=== PATIENT | female | born 1985 | race Caucasian/White ===

== ENCOUNTER 2017-11-14 09:33 | Observation (INO) ==
[2017-11-14 10:43] LABS: BUN/Creatinine Ratio 11 (6-26); Blood Urea Nitrogen 8 mg/dL (6-20); Calcium 10.2 mg/dL (8.6-10.3); Carbon Dioxide 28 mEq/L (23-29); Chloride 105 mEq/L (98-107); Glucose 98 mg/dL (70-105); Osmolality,Calculated 290 (280-300); Potassium 3.9 mEq/L (3.5-5.1); Sodium 141 mEq/L (136-145); eGFR For Non-African Americans > 60 (> 60)
--- NOTE | 2017-11-14 11:19 | Emergency Department Note ---
Overdose - Lab Data Result diagrams: 11/14/17 09:58 Lab Results 11/14/17 Range/Units 09:58 Sodium 141 (136-145) mEq/L Potassium 3.9 (3.5-5.1) mEq/L Chloride 105 (98-107) mEq/L Carbon Dioxide 28 (23-29) mEq/L BUN 8 (6-20) mg/dL Creatinine 0.70 (0.60-1.20) mg/dL Est GFR ( Amer) > 60 (> 60) Est GFR (Non-Af Amer) > 60 (> 60) BUN/Creatinine Ratio 11 (6-26) Glucose 98 (70-105) mg/dL Calculated Osmolality 290 (280-300) Calcium 10.2 (8.6-10.3) mg/dL Overdose HPI - General Chief Complaint: ED Overdose Stated Complaint: EXPOSURE Time Seen by Provider: 11/14/17 10:23 Source: EMS Limitations: altered mental status Nursing Notes Reviewed: Yes Vital Signs Reviewed: Yes - History of Present Illness HPI Narrative: 32 year old female who was first on the scene when investigating the patient zero during a room search with other gaurds who were learning how to search a room. At that time they began to feel dizzy and he was unresponsive. She had a syncopal episode and then recieved 8mg a narcan before arrival. She currently is aleart and drowsy but otherise protecting her airway - Related Data Allergies Allergy/AdvReac Type Severity Reaction Status Date / Time No Known Allergies Allergy Verified 11/14/17 09:49 Constitutional: Denies: fever, chills, weakness, weight change Eyes: Denies: eye pain, eye discharge, vision change ENT ED: Denies: ear pain, throat pain, dental pain, hearing loss, epistaxis, congestion, dysphagia Cardiovascular: Denies: chest pain, palpitations, dyspnea on exertion, edema, syncope Respiratory: Denies: cough, dyspnea, wheezes, hemoptysis, stridor Gastrointestinal: Denies: abdominal pain, nausea, vomiting, diarrhea, constipation, hematemesis, melena, hematochezia Genitourinary: Denies: dysuria, frequency, hematuria, discharge Musculoskeletal: Denies: back pain, neck pain, arthralgia, myalgia Integumentary: Denies: rash, abrasion, lesions Neurological: Reports: weakness, other (dizziness). Denies: headache, numbness , paresthesias, confusion, abnormal gait, vertigo Psychiatric: Denies: anxiety, depression, suicidal thoughts, homicidal thoughts , auditory hallucinations, visual hallucinations Endocrine: Denies: fatigue Hematological/Lymphatic: Denies: easy bleeding, easy bruising Allergic/Immunologic: Denies: facial swelling, urticaria Past Medical History - Past Medical History Medical history: Reports: no medical history Psychiatric history: Reports: no psych history - Social History Smoking Status: Never smoker Alcohol use: Reports: none Drug use: Reports: none Physical Exam - General Limitations: altered mental status General appearance: alert - Head Head exam: atraumatic, normocephalic, normal inspection - Eye Eye exam: Present: normal appearance, PERRL, EOMI - Expanded Eye Exam Pupils: Bilateral: reactive - ENT ENT exam: normal exam, normal oropharynx, mucous membranes moist - Expanded ENT Exam External ear exam: Present: normal external inspection Mouth exam: Present: normal external inspection Teeth exam: Present: normal inspection Throat exam: Present: normal inspection - Neck Neck exam: Present: normal inspection, full ROM, trachea midline - Chest Chest inspection: Present: normal inspection, symmetric chest wall rise - Respiratory Respiratory exam: Present: normal lung sounds bilaterally - Cardiovascular Cardiovascular exam: Present: regular rate, normal rhythm, normal heart sounds - Abdominal Exam Abdominal exam: Present: soft, Non-Tender. Absent: tenderness, distention, guarding, rebound, rigidity - Extremities Exam Extremities exam: Present: normal inspection, full ROM. Absent: tenderness, pedal edema - Expanded Upper Extremity Exam Shoulder exam: Present: normal inspection, full ROM Arm exam: Present: normal inspection, full ROM Elbow exam: Present: normal inspection, full ROM Forearm/Wrist exam: Present: normal inspection, full ROM Hand exam: Present: normal inspection, full ROM Vascular exam: Normal: capillary refill, radial pulse - Expanded Lower Extremity Exam Hip/Pelvis exam: Present: normal inspection, full ROM Upper leg exam: Present: normal inspection, full ROM Knee exam: Present: normal inspection, full ROM Lower leg exam: Present: normal inspection, full ROM Ankle exam: Present: normal inspection, full ROM Foot/toe exam: Present: normal inspection, full ROM Neurovascular/Tendon exam: Absent: motor deficit, sensory deficit, tendon deficit - Back Exam Back exam: Present: normal inspection, full ROM. Absent: tenderness - Neurological Exam Neurological exam: Present: alert, oriented X3 - Expanded Neurological Exam Patient oriented to: Present: person, place, time Coma Scale Eye Opening: Spontaneous Coma Scale Motor Response: Obeys Commands Coma Scale Verbal Response: Oriented Coma Scale Total: 15 - Psychiatric Psychiatric exam: Present: normal affect, normal mood - Skin Skin exam: Present: warm, dry, intact, normal color Course Course Narrative: Vernell has been exposed to fentayl airbouren and has required mulitple doses of narcan and now has been placed on a narcan drip. Arron will be admitted to [facility] more alert now and complaininting of burning senation on her skin. She has been Deconned twice secondary to fentayl being on her hair and exposure to our [employer] which caused her to have a syncopal episode - Consultations Consultation #1: discussed case with Dr. Izquierdo and she accepts patiet to her serivec. stable Time: 12:34 Vital Signs Temperature 97.9 F 11/14/17 09:49 Pulse Rate 87 11/14/17 09:49 Respiratory Rate 16 11/14/17 09:49 Blood Pressure 121/77 11/14/17 09:49 O2 Sat by Pulse Oximetry 99 11/14/17 09:49 Temperature 97.9 F 11/14/17 09:49 Pulse Rate 87 11/14/17 09:49 Respiratory Rate 16 11/14/17 09:49 Blood Pressure 129/83 11/14/17 10:46 O2 Sat by Pulse Oximetry 99 11/14/17 09:49 Oxygen Delivery Oxygen Delivery Room Air Disposition Clinical Impression: Fentanyl poisoning Qualifiers: Encounter type: initial encounter Injury intent: accidental or unintentional Qualified Code(s): T40.4X1A - Poisoning by other synthetic narcotics, accidental (unintentional), initial encounter Disposition: Admitted As Inpatient Condition: Good Referrals: Ugo Beth MD [Primary Care Provider] - Forms: ED Satisfaction Letter Time of Disposition: 11:21
[2017-11-14] MEDS ORDERED: Ondansetron 4 MG/2 ML VIAL IVP ONE (11:42)
[2017-11-14 13:05] LABS: Bilirubin,Urine Negative (Negative); Blood,Urine Negative (Negative); Clarity,Urine Clear (Clear); Color,Urine Yellow (Yellow); Glucose,Urine (UA) Normal (Normal); Ketones,Urine Negative (Negative); Leukocyte Esterase,Urine Negative (Negative); Nitrite,Urine Negative (Negative); Protein,Urine Negative (Neg-Trace); Specific Gravity,Urine 1.007 (1.010-1.025); Urobilinogen,Urine Normal (Normal)
[2017-11-14 13:10] LABS: Amphetamine Screen,Urine Negative ng/mL (Cutoff=1000); Barbiturate Screen,Urine Negative ng/mL (Cutoff=200); Benzodiazepines Screen,Urine Negative ng/mL (Cutoff=200); Cannabinoid Screen,Urine Negative ng/mL (Cutoff = 50); Cocaine Screen,Urine Negative ng/mL (Cutoff= 300); Opiate Screen,Urine Negative ng/mL (Cutoff=300); Phencyclidine Screen,Urine Negative ng/mL (Cutoff=25)
[2017-11-14] MEDS ORDERED: D5% in 0.9% NACL 1,000 ML IVC ONE (16:50)
[2017-11-14] MEDS ORDERED: Ondansetron 4 MG/2 ML VIAL ONE (16:51)
[2017-11-14] MEDS ORDERED: Acetaminophen IV 500 MG/50 ML INFUS..BTL IVPB ONE (17:05)
[2017-11-14] MEDS ORDERED: Naloxone 0.4 MG/ML INJ IVP PRN (17:26)
[2017-11-14] MEDS ORDERED: Ondansetron 4 MG/2 ML VIAL IVP PRN (17:28)
[2017-11-14] MEDS: Acetaminophen 325 MG TABLET PO PRN ×2 (17:44→23:32)
[2017-11-14] MEDS: 0.9 % Sodium Chloride 1,000 ML IVC SCH (17:45)
--- NOTE | 2017-11-14 18:31 | Internal Med History&Physical ---
Date of Encounter: 11/14/17 Time of Encounter: 17:00 Internal Medicine - H&P: HPI Chief complaint: Syncope Admitted From: Emergency Dept Plans for Post Hospital Care: Home History of present illness: Ms. Lara is a 32 year old female with no significant past medical history, was brought in by EMS after having passed out due to likely opiate inhalation. 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 Per ER records, there has been white powder that was opened and that got into the environment and possibly the vent system of the [facility], thus exposing multiple inmates and guards, causing dizziness, syncope, skin paresthesias, wheezing and dyspnea. This is later found to be Fentanyl. Patient currently does not remember anything since entering the said room, and the next thing she knew EMS was taking her to ER. She denies chest pain, shortness of breath, palpitations at the time except syncope. She currently denies these complaints, but does have generalized weakness, extreme fatigue, nausea and dry heaving, no emesis or diarrhea. Past Med Surg Social Fam HX - Past Medical History Source: patient Medical history: no medical history Psychiatric history: no psych history - Past Surgical History Surgical History: no surgical history - Social History Smoking Status: Current every day smoker Packs per day: 1 pack per day Smokeless Tobacco Status: No Alcohol use: none Drug use: none Occupational status: employed Current living situation: Home, With Family Activity Level: Independent ambulation Recent Out of Country Travel Within the Last 8 Weeks: No Exposure or Possible Exposure to Illness During Travel: No - Family History Mother Hx Family Endocrine Disorder: Yes (DM) Internal Medicine - H&P: Meds Esomeprazole Magnesium [Nexium] 40 mg PO DAILY 11/14/17 [History] Tramadol HCl [Ultram] 50 mg PO TID PRN 11/14/17 [History] Venlafaxine HCl [Effexor Xr] 75 mg PO DAILY 11/14/17 [History] 3 Allergy/AdvReac Type Severity Reaction Status Date / Time No Known Allergies Allergy Verified 11/14/17 15:23 All Systems PM: A 10-system review of systems was performed and is negative for pertinent findings except as documented above in the HPI. - Constitutional Constitutional: lethargy, malaise, weakness - EENT Eyes: no change in vision, no discharge, no pain, no photophobia Ears: no ear discharge, no ear pain, no tinnitus Nose, mouth and throat: no dysphagia, no nasal discharge, no neck pain, no sore throat - Cardiovascular Cardiovascular ROS IM: no chest pain, no diaphoresis, no dyspnea, no lightheadedness, no palpitations, no syncope - Respiratory Respiratory: no cough, no dyspnea, no wheezing, no excessive phlegm production - Gastrointestinal Gastrointestinal: nausea, no abdominal pain, no diarrhea, no hematemesis, no hematochezia, no melena, no vomiting - Genitourinary Genitourinary: no change in urinary stream, no dysuria, no flank pain, no hematuria - Musculoskeletal Musculoskeletal ROS IM: no numbness, no tingling - Integumentary Integumentary IM: no rash, no unusual bruising - Neurological Neurological ROS: behavioral changes, confusion, dizziness, weakness - Hematologic/Lymphatic Hematologic/Lymphatic: no easy bruising - Constitutional Vitals: Temp Pulse Resp BP Pulse Ox 98.6 F 76 16 123/70 97 11/14/17 17:00 11/14/17 17:00 11/14/17 17:00 11/14/17 17:00 11/14/17 17:00 General appearance: Present: mild distress (due to nausea), A&O X 3, answers questions appropriately Exam: . - Respiratory Respiratory exam: Present: CTAB. Absent: accessory muscle use, rales, rhonchi, wheezes - Cardiovascular Cardiovascular exam: Present: RRR, +S1, +S2. Absent: diastolic murmur, gallop, rubs, systolic murmur - GI/Abdominal GI/Abdominal exam: Present: normal bowel sounds, soft, no peritoneal signs. Absent: distended, tenderness - Extremities Exam Extremities exam: Present: full ROM, warm, radial pulses palpable and symmetrical. Absent: calf tenderness, cyanotic, pedal edema - Neurological Exam Neurological exam: Present: CN II-XII intact, oriented X3, no focal deficits (B/ L generalized weakness, 4/5 motor power). Absent: pronater drift, facial droop , speech deficit - Skin Skin exam: Present: dry, intact Internal Med - H&P Results - Labs CBC & Chem 7: 11/14/17 09:58 - Assessment and plan (1) Syncope Current Visit: Yes Status: Acute Assessment and plan: Drug-induced, likely secondary to unintentional Fentanyl inhalation; continue Telemetry monitoring; Qualifiers: Syncope type: unspecified Qualified Code(s): R55 - Syncope and collapse (2) Depression Current Visit: Yes Status: Chronic Qualifiers: Depression Type: unspecified Qualified Code(s): F32.9 - Major depressive disorder, single episode, unspecified (3) Fentanyl poisoning Current Visit: Yes Status: Acute Assessment and plan: Accidental Fentanyl inhalation due to an outbreak in the [facility], causing mass casualties and emergency in the ER; monitor vital signs closely; supportive care; PRN antiemetic; avoid sedatives/ hypnotics; fall precautions; diet as tolerated; Qualifiers: Encounter type: initial encounter Injury intent: accidental or unintentional Qualified Code(s): T40.4X1A - Poisoning by other synthetic narcotics, accidental (unintentional), initial encounter - Time Spent With Patient Total time spent is greater than 50% in coordination of care (as documented) at patient's floor/unit and/or counseling patient:
[2017-11-14] MEDS ORDERED: Ibuprofen 400 MG TABLET PO PRN (21:32)
[2017-11-15] MEDS ORDERED: *HR* Promethazine 25 MG/ML VIAL IVP PRN (01:23)
[2017-11-15] MEDS ORDERED: Ketorolac 15 MG/ML VIAL IVP ONE (01:25)
[2017-11-15] MEDS: 0.9 % Sodium Chloride 1,000 ML IVC SCH (04:17)
[2017-11-15 04:18] LABS: Basophils % 0.3 %; Eosinophils # 0.1 K/mcL (0.0-0.6); Eosinophils % 1.3 %; Hematocrit 36.7 % (35.3-44.9); Hemoglobin 12.2 g/dL (11.5-15.4); Immature Granulocytes % 0.3 % (0-4); Lymphocytes # 3.2 K/mcL (0.6-4.6); Mean Corpuscular HGB Conc 33.2 g/dL (31.6-35.5); Mean Corpuscular Hemoglobin 32.3 pg (28.0-33.3); Mean Corpuscular Volume 97.1 fL (83.0-100.0); Mean Platelet Volume 9.4 fL (9.4-12.4); Monocytes # 0.7 K/mcL (0.0-1.3); Monocytes % 9.2 %; Neutrophils # 3.6 K/mcL (1.6-8.9); Platelet Count 277 K/mcL (140-400); Red Blood Count 3.78 M/mcL (3.82-4.97); Segmented Neutrophils % 46.9 %
[2017-11-15 04:39] LABS: BUN/Creatinine Ratio 15 (6-26); Blood Urea Nitrogen 9 mg/dL (6-20); Calcium 8.9 mg/dL (8.6-10.3); Carbon Dioxide 28 mEq/L (23-29); Chloride 110 mEq/L (98-107); Glucose 93 mg/dL (70-105); Osmolality,Calculated 288 (280-300); Potassium 4.1 mEq/L (3.5-5.1); Sodium 140 mEq/L (136-145); eGFR For Non-African Americans > 60 (> 60)
[2017-11-15] MEDS: Acetaminophen 325 MG TABLET PO PRN (08:13)
[2017-11-15 08:39] VITALS: BP 108/69
[2017-11-15] MEDS ORDERED: Venlafaxine XR (24 HR) 75 MG CAP.ER.24H PO SCH (09:00)
[2017-11-15] MEDS ORDERED: Stomatitis Mixture 5 ML UDC PO SCH (09:00)
--- NOTE | 2017-11-15 09:53 | Internal Med Progress Note ---
Hospitalist Progress Note - Encounter Date of Encounter: 11/15/17 Time of Encounter: 08:00 - Exam Vitals: Temp Pulse Resp BP Pulse Ox 98.0 F 71 14 108/69 98 11/15/17 04:00 11/15/17 08:00 11/15/17 08:00 11/15/17 08:00 11/15/17 08:00 - Time Spent with Patient Total time spent is greater than 50% in coordination of care (as documented) at patient's floor/unit and/or counseling patient: Internal Medicine: Result - Labs CBC & Chem 7: 11/15/17 04:08 11/15/17 04:08 Labs: Short CBC 11/15/17 Range/Units 04:08 WBC 7.6 (4.3-11.1) K/mcL Hgb 12.2 (11.5-15.4) g/dL Hct 36.7 (35.3-44.9) % Plt Count 277 (140-400) K/mcL Neutrophils # 3.6 (1.6-8.9) K/mcL BMP 11/15/17 04:08 Sodium 140 Potassium 4.1 Chloride 110 H Carbon Dioxide 28 BUN 9 Creatinine 0.59 L Glucose 93 Calcium 8.9 Consult Discharge Plan - Plan Referrals: Ugo Beth MD [Primary Care Provider] -
--- NOTE | 2017-11-15 10:56 | Discharge Summary ---
<Reed King - Last Filed: 11/15/17 19:48> - NOTES TO OUTPATIENT PROVIDER Notes to Outpatient Provider: pt sent home with narcan nasal spray, stomatitis mix, continuing home meds Date of Encounter: 11/15/17 Time of Encounter: 08:00 - Discharge Diagnosis (1) Fentanyl poisoning Priority: Primary Status: Acute Qualifiers: Encounter type: initial encounter Injury intent: accidental or unintentional Qualified Code(s): T40.4X1A - Poisoning by other synthetic narcotics, accidental (unintentional), initial encounter (2) Syncope Priority: Secondary Status: Acute Qualifiers: Syncope type: unspecified Qualified Code(s): R55 - Syncope and collapse (3) Depression Priority: Secondary Status: Chronic Qualifiers: Depression Type: unspecified Qualified Code(s): F32.9 - Major depressive disorder, single episode, unspecified Hospital course: Ms. 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 Patient given narcan drip on admission, airway remained protected, telemetry showing no concerning changes. Patient today experiencing less headache (responded to tylenol), less pruritis/paresthesia of the face/neck, and is alert and oriented and answering questions appropriately. She is being discharged with nasal narcan spray (with RN instruction on its use/ indications) and stomatitis mix for incidental hard palate irritation. Ready to go home with family today. - Time Spent with Patient Total time spent providing and/or coordinating discharge services: - Discharge Medications Prescriptions: NALOXONE 4 MG Nasal [place] [Narcan] 4 mg NS AD #2 sprays Stomatitis Mixture 5 ml PO PRN PRN #100 mls PRN Reason: Pain Home Medications: Esomeprazole Magnesium [Nexium] 40 mg PO DAILY 11/14/17 [History] Tramadol HCl [Ultram] 50 mg PO TID PRN 11/14/17 [History] Venlafaxine HCl [Effexor Xr] 75 mg PO DAILY 11/14/17 [History] NALOXONE 4 MG Nasal [place] [Narcan] 4 mg NS AD #2 sprays 11/15/17 [Rx] Stomatitis Mixture 5 ml PO PRN PRN #100 mls 11/15/17 [Rx] Allergies/Adverse Reactions: 3 Allergy/AdvReac Type Severity Reaction Status Date / Time No Known Allergies Allergy Verified 11/14/17 15:23 Date of admission: 11/14/17 12:43 Primary care physician: Ugo Beth MD - Constitutional Vitals: Temp Pulse Resp BP Pulse Ox 98.0 F 74 16 108/69 99 11/15/17 04:00 11/15/17 10:00 11/15/17 10:00 11/15/17 08:00 11/15/17 10:00 General appearance: Present: mild distress (due to nausea), A&O X 3, answers questions appropriately Exam: . - Head Head exam: Present: atraumatic, normocephalic - Eye Eye exam: Present: PERRL, conjuntiva pink, sclera anicteric Pupils: Present: PERRL - Neck Neck exam general surgery: Present: supple, trachea midline. Absent: lymphadenopathy - Respiratory Respiratory exam: Present: CTAB. Absent: accessory muscle use, rales, rhonchi, wheezes - Cardiovascular Cardiovascular exam: Present: RRR, +S1, +S2. Absent: diastolic murmur, gallop, rubs, systolic murmur - GI/Abdominal GI/Abdominal exam: Present: normal bowel sounds, soft, no peritoneal signs. Absent: distended, tenderness - Extremities Exam Extremities exam: Present: warm, radial pulses palpable and symmetrical. Absent : calf tenderness, cyanotic, pedal edema - Neurological Exam Neurological exam: Present: CN II-XII intact, oriented X3, no focal deficits. Absent: pronater drift, facial droop, speech deficit - Skin Skin exam: Present: dry, intact - Patient Status Disposition: Home, Self-Care Condition: Good - Discharge Instructions Follow Up With: Uog Beth MD [Primary Care Provider] - 11/20/17 11:30 am (hospital follow up) - Diet and Activity Activity: resume usual activities as tolerated Diet: regular diet <Lane Thurston - Last Filed: 11/15/17 20:05> Date of Encounter: 11/15/17 - Discharge Diagnosis (1) Fentanyl poisoning Status: Acute Qualifiers: Encounter type: subsequent encounter Injury intent: accidental or unintentional Qualified Code(s): T40.4X1D - Poisoning by other synthetic narcotics, accidental (unintentional), subsequent encounter (2) Syncope Status: Acute Qualifiers: Syncope type: unspecified Qualified Code(s): R55 - Syncope and collapse (3) Depression Status: Chronic Qualifiers: Depression Type: unspecified Qualified Code(s): F32.9 - Major depressive disorder, single episode, unspecified (4) Tobacco abuse Priority: Secondary Status: Chronic Hospital course: Ms. Lara is a 32 year old female - Time Spent with Patient Total time spent providing and/or coordinating discharge services: Date of admission: 11/14/17 12:43 Primary care physician: Ugo Beth MD - Constitutional Vitals: Temp Pulse Resp BP Pulse Ox 97.1 F L 63 16 108/69 99 11/15/17 11:45 11/15/17 11:06 11/15/17 10:00 11/15/17 08:00 11/15/17 10:00 - Attending Attestation I examined this patient and my medical decision-making was reviewed with the Resident Physician on 11/15/17. I agree with the documented findings, disposition and treatment plan as described except to the extent set forth below. Ms Lara has been in observation due to accidental exposure to fentanyl. She required multiple doses of Narcan. She is now afebrile and ready for discharge. Exam alert Tearful Mucus membranes dry Heart reg No wheeze Plan D/C home today.
== END 2017-11-15 13:00 | disposition home or self-care (01) ==
LOC: 3BNU 09:33 → EMEROOARM 09:33 → MERGE 12:43 → SUATTDRO 12:43 → 3BNU 16:04 → ICNU 17:06
PROVIDERS: ADMIT Internal Medicine; ATTEND Internal Medicine